=== PATIENT | male | born 1970 | race Caucasian/White ===

== ENCOUNTER 2018-12-21 13:12 | Emergency (ER) | payer OTHER ==
[~2018-12-21] VITALS: Ht 162.6 cm; Wt 86.2 kg
[2018-12-21 13:15] VITALS: BP 123/87
--- NOTE | 2018-12-21 13:32 | NUR ---
PATIENT WHEELCHAIR ASSISTED TO BED 6
--- NOTE | 2018-12-21 13:35 | NUR ---
48 YO M BIB FAMILY W/ C/O 10/10 RIGHT ABOVE THE KNEE PAIN THAT STARTED YESTERDAY AFTERNOON. PT DENIES ANY INJURY. -EDEMA/ERYTHEMA/ECCHYMOSIS. PT STATES HE WAS IN [place] LAST WEEK. TYLENOL TAKEN YESTERDAY W/O RELIEF. DENIES ANY BUG BITES. PT UNABLE TO AMBULATE/BEAR WEIGHT ON THE RIGHT KNEE. DENIES N/V/D/FEVERS. PT IS AOX4 TO PERSON, PLACE, TIME, AND SITUATION. RR ARE EVEN AND UNLABORED. PT POSITIONED TO COMFORT. ALL NEEDS MET AT THIS TIME. WILL CONTINUE TO MONITOR.
--- NOTE | 2018-12-21 15:05 | NUR ---
er md fairchild by bedside examining pt
[2018-12-21] MEDS ORDERED: HYDROcodone/APAP 5/325 MG 1 TAB TAB PO ONE (15:10)
[2018-12-21] MEDS ORDERED: KETOROLAC 30 MG/ML VIAL IM ONE (15:10)
[2018-12-21 15:43] VITALS: BP 119/81
--- NOTE | 2018-12-21 15:43 | NUR ---
Patient discharged with v/s stable. Written and verbal after care instructions given and explained. Patient alert, oriented and verbalized understanding of instructions. Ambulatory with steady gait. All questions addressed prior to discharge. ID band removed. Patient advised to follow up with PMD. Rx of Ultram 50mg given. Patient educated on indication of medication including possible reaction and side effects. Opportunity to ask questions provided and answered.
== END 2018-12-21 15:43 | disposition home or self-care (01) ==
LOC: MED 13:12
DX: M22.2X1 Patellofemoral disorders, right knee (principal)
CPT/HCPCS: 73562; 99283; J1885; Q0092

== ENCOUNTER 2019-10-10 08:39 | Emergency (ER) | payer OTHER ==
[~2019-10-10] VITALS: Ht 160 cm; Wt 93.6 kg
[2019-10-10 08:49] VITALS: BP 142/81
[2019-10-10] MEDS ORDERED: IBUPROFEN 800 MG TAB PO ONE (09:20)
[2019-10-10 10:05] VITALS: BP 142/81
== END 2019-10-10 10:03 | disposition home or self-care (01) ==
LOC: MED 08:39
DX: M25.561 Pain in right knee (principal)
CPT/HCPCS: 73562; 99283

== ENCOUNTER 2021-02-08 18:36 | Emergency (ER) | payer OTHER ==
[~2021-02-08] VITALS: Ht 162.6 cm; Wt 90.7 kg
[2021-02-08 18:40] VITALS: BP 170/122
--- NOTE | 2021-02-08 18:46 | NUR ---
PT AMB TO BED 4.
--- NOTE | 2021-02-08 18:48 | NUR ---
[facility]: RIGHT EYE 20/20, LEFT EYE 20/20, BOTH EYES 20/20
--- NOTE | 2021-02-08 18:52 | NUR ---
50/M BIB SELF C/O 06/04 LEFT EYE PAIN, REDNESS X TODAY. DENIES TRAUMA OR BLURRY VISION. PMH: DENIES
[2021-02-08] MEDS ORDERED: FLUORESCEIN OPTH STRIP 1 MG OP ONE (18:55)
--- NOTE | 2021-02-08 19:09 | NUR ---
Pt report given to JOHANNA BOOKER. Transfer of care at this time.
[2021-02-08] MEDS ORDERED: KETO5DRO2 OP (19:17)
[2021-02-08] MEDS ORDERED: ERYT5OIN58 LEFT EYE (19:17)
[2021-02-08 19:32] VITALS: BP 170/122
--- NOTE | 2021-02-08 19:33 | NUR ---
Patient discharged with v/s stable. Written and verbal after care instructions given and explained. Patient alert, oriented and verbalized understanding of instructions. Ambulatory with steady gait. All questions addressed prior to discharge. ID band removed. Patient advised to follow up with PMD. Rx of ERTHROMYCIN, ZADITOR given. Patient educated on indication of medication including possible reaction and side effects. Opportunity to ask questions provided and answered.
== END 2021-02-08 19:33 | disposition home or self-care (01) ==
LOC: MED 18:36
DX: H10.12 Acute atopic conjunctivitis, left eye (principal)
CPT/HCPCS: 99283